=== PATIENT | male | born 1970 | race Caucasian/White ===

== ENCOUNTER 2016-08-30 06:16 | Day surgery (SDC) | payer OTHER ==
--- NOTE | ~2016-08-30 | EGD ---
EGD REPORT [facility] [address] [place]. [address] NAME: JARRET MTZ : 74 STATUS : REG [facility]#: [id number] AGE: 46 ADM/REG DATE : 08/30/16 MR#: [id number] REPORT SERV DATE: 08/30/16 DICTATED BY: POLI AMOS DATE: 08/30/16 REPORT STATUS : Draft TRANSCRIBED BY: [employer] DATE: 08/30/16 Endoscopy Center Patient Name: Jarret Mtz Date of : 1970 Attending MD: POLI AMOS MD Procedure Date No Time: 08/30/2016 Procedure: Colonoscopy Indications: FH of Colon Cancer -distant relative, Personal history of ulcerative colitis Medicines: as per anesthesia Complications: No immediate complications. Procedure: Pre-Anesthesia Assessment: - ASA Grade Assessment: III - A patient with severe systemic disease. After I obtained informed consent, the scope was passed under direct vision. Throughout the procedure, the patient's blood pressure, pulse, and oxygen saturations were monitored continuously. The PCF [id number] was introduced through the anus and advanced to the cecum, identified by appendiceal orifice and ileocecal valve. The colonoscopy was performed without difficulty. The patient tolerated the procedure. The quality of the bowel preparation was adequate to identify polyps. Findings: The perianal and digital rectal examinations were normal. no active colitis Four biopsies were obtained in the rectum, in the sigmoid colon, in the descending colon, in the proximal transverse colon, in the distal transverse colon, in the ascending colon and in the cecum with cold forceps for histology. Impression: - Four biopsies were obtained in the rectum, in the sigmoid colon, in the descending colon, in the proximal transverse colon, in the distal transverse colon, in the ascending colon and in the cecum. Recommendation: - Await pathology results. - Repeat colonoscopy for surveillance based on pathology results. Procedure Code(s): --- Professional --- 17277, Colonoscopy, flexible, proximal to splenic flexure; with biopsy, single or multiple EGD REPORT [address] [place]. [address] NAME: JARRET MTZ : 74 STATUS : REG [facility]#: [id number] AGE: 46 ADM/REG DATE : 08/30/16 MR#: [id number] REPORT SERV DATE: 08/30/16 DICTATED BY: POLI AMOS DATE: 08/30/16 REPORT STATUS : Draft TRANSCRIBED BY: [employer] DATE: 08/30/16 Diagnosis Code(s): --- Professional --- Z80.0, Family history of malignant neoplasm of digestive organs Z87.19, Personal history of other diseases of the digestive system CPT copyright 2013 [employer]. All rights reserved. The codes documented in this report are preliminary and upon chimney builder helper review may be revised to meet current compliance requirements. POLI AMOS MD 08/30/2016 8:03 AM This report has been signed electronically. Number of Addenda: 0 Note Initiated On: 08/30/2016 7:20 AM Scope Withdrawal Time 0 hours 13 minutes [address] [place], [place] [address] [address]
[~2016-08-30 06:16] MED LIST: ASACOL HD800 MG PO; HYDROCHLOROT25 MG PO; LOTE40 PO; PRILOSEC40 MG PO; URSO250 PO
[2016-08-30] MEDS ORDERED: LOTE40 PO (20:22)
[2016-08-30] MEDS ORDERED: HYDROCHLOROT25 MG PO (20:22)
[2016-08-30] MEDS ORDERED: ASACOL HD800 MG PO (20:23)
[2016-08-30] MEDS ORDERED: PRILOSEC OTC20 MG PO (20:24)
[2016-08-30] MEDS ORDERED: ACT300 PO ×2 (20:24)
[2016-08-30] MEDS ORDERED: MULTIVIT/MIN PO (20:24)
[2016-08-30] MEDS ORDERED: FISH-EPA1000 MG PO (20:25)
== END 2016-08-30 23:50 | disposition home or self-care (01) ==
LOC: DMU 06:16
PROVIDERS: Internal Medicine Gastroenterology
PROC: 0DBH8ZX Excision of Cecum, Via Natural or Artificial Opening Endoscopic, Diagnostic (ICD-10-PCS; 2016-08-30)
PROC: 0DBK8ZX Excision of Ascending Colon, Via Natural or Artificial Opening Endoscopic, Diagnostic (ICD-10-PCS; 2016-08-30)
PROC: 0DBL8ZX Excision of Transverse Colon, Via Natural or Artificial Opening Endoscopic, Diagnostic (ICD-10-PCS; 2016-08-30)
PROC: 0DBM8ZX Excision of Descending Colon, Via Natural or Artificial Opening Endoscopic, Diagnostic (ICD-10-PCS; 2016-08-30)
PROC: 0DBN8ZX Excision of Sigmoid Colon, Via Natural or Artificial Opening Endoscopic, Diagnostic (ICD-10-PCS; 2016-08-30)
PROC: 0DBP8ZX Excision of Rectum, Via Natural or Artificial Opening Endoscopic, Diagnostic (ICD-10-PCS; principal; 2016-08-30 07:30)
DX: K52.9 Noninfective gastroenteritis and colitis, unspecified (principal); I10 Essential (primary) hypertension; K83.0 Cholangitis; K21.9 Gastro-esophageal reflux disease without esophagitis; M50.20 Other cervical disc displacement, unspecified cervical region; H91.92 Unspecified hearing loss, left ear; Z80.0 Family history of malignant neoplasm of digestive organs; Z88.2 Allergy status to sulfonamides; Z88.5 Allergy status to narcotic agent; Z88.8 Allergy status to other drugs, medicaments and biological substances; Z79.899 Other long term (current) drug therapy
CPT/HCPCS: 45380; 88305; J2543

== ENCOUNTER 2016-08-30 14:25 | Inpatient (IN) | payer OTHER ==
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
--- NOTE | ~2016-08-30 | DS ---
Discharge Summary [facility] [address] [place]. [address] NAME: MARC MILES : 74 STATUS : ADM IN [facility]#: [id number] AGE: 46 ADM/REG DATE : 08/30/16 MR#: [id number] REPORT SERV DATE: 09/02/16 DICTATED BY: VI DU DATE: 09/02/16 REPORT STATUS : Draft TRANSCRIBED BY: MODL DATE: 09/02/16 ADMISSION DATE: 08/30/2016 DISCHARGE DATE: 09/02/2016 FINAL HOSPITAL DIAGNOSES: 1. Febrile illness, felt secondary to probable mild aspiration during colonoscopy. 2. Ulcerative colitis. 3. Primary sclerosing cholangitis. CONSULTATIONS: Dr. Sellers. PROCEDURES: CT of the abdomen and pelvis done on 08/30/2016 showing no acute abdominal or pelvic pathology. No imaging explanation for the reported abdominal pain and fever. Normal small caliber air-filled appendix right lower quadrant. No pneumoperitoneum or ascites to suggest perforation. CURRENT PHYSICAL FINDINGS AND HISTORY OF PRESENT ILLNESS: Please see the dictated H and P by Dr. Martino. In brief, the patient is a 46-year-old otherwise healthy male with the above medical history, presented after fevers and chills developing after colonoscopy. Vital signs at the time of admission, BP was 133/73, temperature was 99.7. Lab work showed a procalcitonin of 0.11 on admission and 0.09 on recheck, no significant abnormalities on . TSH was 0.292 with a T4 of 1.04 CRP was 19.1. A1c was 5.5. Initial white count was 13.9, subsequent were 11.0 on 08/31/2016, and 8.0 on 09/02/2016. HLA-B27 was ordered and currently pending. Urinalysis was unremarkable. Blood cultures are negative to date. Initial chest x-ray showed no acute abnormality. Followup chest x-ray on 08/31/2016 showed mild subsegmental left basilar atelectasis. The patient was admitted. Reasonable pain medications were given. GI was consulted for further insight on his endoscopy. He was started on Zosyn. Electrolyte protocol and home medications. No significant fever or respiratory distress the following day. On further discussion with GI, the patient had a small aspiration of oral contents felt contributing to his symptoms. He continued to do well without complaints or problems. On 09/02/2016, he was re-evaluated. He had no significant symptoms, was felt stable for discharge. DISPOSITION: Discharged home. MEDICATIONS: Lotensin 40; hydrochlorothiazide 25; Asacol 2400 twice a day; multivitamin; fish oil 1000 b.i.d.; Prilosec OTC, 900 at a.m., 600 p.m. He was given a work excuse as well as a prescription for Augmentin 875 b.i.d. x5 days to complete a seven day course of treatment. He states he has had amoxicillin before and believes he has tolerated the Augmentin before without difficulty. He will be referred to Rheumatology in the outpatient per Dr. Sellers for his arthralgias. He is encouraged to follow up with his PCP if his symptoms worsen or fail to resolve on the oral antibiotics. TLF/MODL Discharge Summary [address] [address] NAME: MARC MILES : 74 STATUS : ADM IN [facility]#: [id number] AGE: 46 ADM/REG DATE : 08/30/16 MR#: [id number] REPORT SERV DATE: 09/02/16 DICTATED BY: VI DU DATE: 09/02/16 REPORT STATUS : Draft TRANSCRIBED BY: BRIGITTE DATE: 09/02/16 Vi Du M.D. / [id number] CC: Vi Du M.D.
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
[2016-08-30 15:04] LABS: BASOPHILS 0.1 %; BASOPHILS ABSOLUTE 0.01 10/3/uL (0.0-0.16); EOSINOPHILS 0.2 %; EOSINOPHILS ABSOLUTE 0.03 10/3/uL (0.0-0.53); HEMATOCRIT 43.6 % (40.0-51.0); HEMOGLOBIN 15.2 g/dL (13.6-17.8); IMMATURE GRANULOCYTES 0.2 %; IMMATURE GRANULOCYTES ABSOLUTE 0.03 10/3/uL (0.0-0.11); LYMPHOCYTES 6.7 %; LYMPHOCYTES ABSOLUTE 0.93 10/3/uL (0.67-4.30); MEAN CORPUS HGB CONC 34.9 g/dL (32.0-36.0); MEAN CORPUSCULAR HEMOGLOB 31.9 pg (26.0-34.0); MEAN CORPUSCULAR VOLUME 91.4 fL (80-100); MEAN PLATELET VOLUME 13.1 fL (9.2-13.0); MONOCYTES 4.7 %; MONOCYTES ABSOLUTE 0.65 10/3/uL (0.21-1.20); NEUTROPHILS 88.1 %; PLATELET COUNT 130 10/3/uL (150-400); RBC DISTRIBUTION WIDTH 13.2 % (12.0-16.0); RED CELL COUNT 4.77 10/6/uL (4.7-6.1)
[2016-08-30 15:05] LABS: ER CBC TAT 0 Hrs 09 Mins; MANUAL DIFF NO %; WHITE BLOOD CELLS 13.9 10/3/uL (4.5-10.5)
[2016-08-30 15:08] LABS: ASCORBIC ACID (UR NOT ORDER) NEG (NEG); BILIRUBIN, URINE NEGATIVE (NEG); ER URINALYSIS TAT 0 Hrs 12 Mins; KETONE, URINE NEGATIVE (NEG); LEUKOCYTE ESTERASE(NOT OR NEG (NEG); NITRITE (URINE) NEG (NEG); WBC (NOT ORDERED) (RFLEX) < 1 (0-5)
[2016-08-30 15:19] LABS: A/G RATIO 0.9 (0.7-1.9); ALBUMIN 3.9 G/DL (3.5-5.0); ALKALINE PHOSPHATASE 121 U/L (45-117); BUN (BLOOD UREA NITROGEN) 11 MG/DL (6-23); CALCIUM, SERUM 9.1 MG/DL (8.5-10.4); CHLORIDE, SERUM 104 MMOL/L (96-112); CO2 (CARBON DIOXIDE) 31 MMOL/L (24-34); CREATININE 1.12 MG/DL (0.70-1.30); GFR AFRICAN AMERICAN 92 ML/MIN (>=60); GFR NON AFRICAN AMERICAN 79 ML/MIN (>=60); GLOBULIN 4.3 G/DL (2.5-4.1); GLUCOSE, SERUM 150 MG/DL (60-99); POTASSIUM, SERUM 4.1 MMOL/L (3.5-5.3); SGOT(AST) 27 U/L (5-40); SGPT(ALT) 42 U/L (5-65); SODIUM, SERUM 138 MMOL/L (135-148); TOTAL BILIRUBIN 0.5 MG/DL (0-1.2); TOTAL PROTEIN 8.2 G/DL (6.0-8.5)
[2016-08-30] MEDS ORDERED: LOTE40 PO (20:22)
[2016-08-30] MEDS ORDERED: HYDROCHLOROT25 MG PO (20:22)
[2016-08-30] MEDS ORDERED: ASACOL HD800 MG PO (20:23)
[2016-08-30] MEDS ORDERED: ACT300 PO ×2 (20:24)
[2016-08-30] MEDS ORDERED: PRILOSEC OTC20 MG PO (20:24)
[2016-08-30] MEDS ORDERED: MULTIVIT/MIN PO (20:24)
[2016-08-30] MEDS ORDERED: FISH-EPA1000 MG PO (20:25)
[2016-08-31 05:32] LABS: CALCIUM IONIZED 4.5 MG/DL (3.80-4.80)
[2016-08-31 05:40] LABS: INTERNATIONAL NORMAL RATI 1.1 UNITS (-); PARTIAL THROMBO TIME 26.7 SEC (22.5-37.2)
[2016-08-31 05:41] LABS: BASOPHILS 0.1 %; BASOPHILS ABSOLUTE 0.01 10/3/uL (0.0-0.16); EOSINOPHILS 1.2 %; EOSINOPHILS ABSOLUTE 0.13 10/3/uL (0.0-0.53); HEMATOCRIT 39.4 % (40.0-51.0); HEMOGLOBIN 13.4 g/dL (13.6-17.8); IMMATURE GRANULOCYTES 0.2 %; IMMATURE GRANULOCYTES ABSOLUTE 0.02 10/3/uL (0.0-0.11); LYMPHOCYTES 21.8 %; MANUAL DIFF NO %; MEAN CORPUSCULAR HEMOGLOB 31.2 pg (26.0-34.0); MEAN CORPUSCULAR VOLUME 91.6 fL (80-100); MONOCYTES 7.3 %; NEUTROPHILS 69.4 %; NEUTROPHILS ABSOLUTE 7.66 10/3/uL (2.02-8.40); PLATELET COUNT 113 10/3/uL (150-400); RBC DISTRIBUTION WIDTH 13.4 % (12.0-16.0)
[2016-08-31 06:00] LABS: A/G RATIO 0.9 (0.7-1.9); ALBUMIN 3.2 G/DL (3.5-5.0); BUN (BLOOD UREA NITROGEN) 11 MG/DL (6-23); C-REACTIVE PROTEIN 19.1 MG/L (<8.0); CALCIUM, SERUM 8.3 MG/DL (8.5-10.4); CHLORIDE, SERUM 108 MMOL/L (96-112); CO2 (CARBON DIOXIDE) 27 MMOL/L (24-34); CREATININE 0.94 MG/DL (0.70-1.30); FREE T4 1.04 NG/DL (0.76-1.46); GFR AFRICAN AMERICAN 114 ML/MIN (>=60); GFR NON AFRICAN AMERICAN 98 ML/MIN (>=60); GLOBULIN 3.6 G/DL (2.5-4.1); POTASSIUM, SERUM 3.5 MMOL/L (3.5-5.3); SGOT(AST) 17 U/L (5-40); SGPT(ALT) 32 U/L (5-65); SODIUM, SERUM 142 MMOL/L (135-148); TOTAL BILIRUBIN 0.7 MG/DL (0-1.2); TOTAL PROTEIN 6.8 G/DL (6.0-8.5)
[2016-08-31 06:01] LABS: ALKALINE PHOSPHATASE 105 U/L (45-117); GLUCOSE, SERUM 95 MG/DL (60-99); ULTRASENSITIVE TSH 0.292 MCIU/ML (0.358-3.740)
[2016-08-31 06:14] LABS: PROCALCITONIN 0.11 ng/mL (<0.5)
[2016-08-31 09:54] LABS: GLYCOHEMOGLOBIN (HbA1c) 5.5 % (4.7-6.1)
[2016-09-02 07:20] LABS: BASOPHILS 0.4 %; BASOPHILS ABSOLUTE 0.03 10/3/uL (0.0-0.16); EOSINOPHILS 2.4 %; EOSINOPHILS ABSOLUTE 0.19 10/3/uL (0.0-0.53); HEMATOCRIT 38.3 % (40.0-51.0); HEMOGLOBIN 13.3 g/dL (13.6-17.8); IMMATURE GRANULOCYTES 0.2 %; IMMATURE GRANULOCYTES ABSOLUTE 0.02 10/3/uL (0.0-0.11); LYMPHOCYTES 23.8 %; LYMPHOCYTES ABSOLUTE 1.91 10/3/uL (0.67-4.30); MANUAL DIFF NO %; MEAN CORPUS HGB CONC 34.7 g/dL (32.0-36.0); MEAN CORPUSCULAR HEMOGLOB 31.3 pg (26.0-34.0); MEAN CORPUSCULAR VOLUME 90.1 fL (80-100); MEAN PLATELET VOLUME 13.1 fL (9.2-13.0); MONOCYTES 6.4 %; MONOCYTES ABSOLUTE 0.51 10/3/uL (0.21-1.20); NEUTROPHILS 66.8 %; NEUTROPHILS ABSOLUTE 5.36 10/3/uL (2.02-8.40); PLATELET COUNT 108 10/3/uL (150-400); RBC DISTRIBUTION WIDTH 13.3 % (12.0-16.0); RED CELL COUNT 4.25 10/6/uL (4.7-6.1)
[2016-09-02] MEDS ORDERED: AUG875 PO (12:09)
== END 2016-09-02 12:33 | disposition home or self-care (01) | DRG 206 ==
LOC: ER 14:25 → 4SO 20:31
PROVIDERS: Hospitalist; Internal Medicine
PROC: 0DBK8ZX Excision of Ascending Colon, Via Natural or Artificial Opening Endoscopic, Diagnostic (ICD-10-PCS; principal; 2016-08-30)
PROC: 0DBL8ZX Excision of Transverse Colon, Via Natural or Artificial Opening Endoscopic, Diagnostic (ICD-10-PCS; principal; 2016-08-30)
PROC: 0DBM8ZX Excision of Descending Colon, Via Natural or Artificial Opening Endoscopic, Diagnostic (ICD-10-PCS; principal; 2016-08-30)
PROC: 0DBH8ZX Excision of Cecum, Via Natural or Artificial Opening Endoscopic, Diagnostic (ICD-10-PCS; principal; 2016-08-30)
PROC: 0DBN8ZX Excision of Sigmoid Colon, Via Natural or Artificial Opening Endoscopic, Diagnostic (ICD-10-PCS; principal; 2016-08-30)
PROC: 0DBP8ZX Excision of Rectum, Via Natural or Artificial Opening Endoscopic, Diagnostic (ICD-10-PCS; principal; 2016-08-30)
DX: J95.89 Other postprocedural complications and disorders of respiratory system, not elsewhere classified (principal); T17.890A Other foreign object in other parts of respiratory tract causing asphyxiation, initial encounter; K83.0 Cholangitis; K51.80 Other ulcerative colitis without complications; K51.90 Ulcerative colitis, unspecified, without complications; R65.10 Systemic inflammatory response syndrome (SIRS) of non-infectious origin without acute organ dysfunction; M50.20 Other cervical disc displacement, unspecified cervical region; J98.11 Atelectasis; Y84.8 Other medical procedures as the cause of abnormal reaction of the patient, or of later complication, without mention of misadventure at the time of the procedure; Y92.89 Other specified places as the place of occurrence of the external cause; I10 Essential (primary) hypertension; M13.0 Polyarthritis, unspecified; Z79.899 Other long term (current) drug therapy; F41.9 Anxiety disorder, unspecified; Z88.2 Allergy status to sulfonamides; Z88.8 Allergy status to other drugs, medicaments and biological substances; Z88.5 Allergy status to narcotic agent; Z72.0 Tobacco use; M07.6 Enteropathic arthropathies; M07.65 Enteropathic arthropathies, hip; M07.652 Enteropathic arthropathies, left hip; M07.662 Enteropathic arthropathies, left knee; K52.9 Noninfective gastroenteritis and colitis, unspecified; K21.9 Gastro-esophageal reflux disease without esophagitis; H91.92 Unspecified hearing loss, left ear; Z80.0 Family history of malignant neoplasm of digestive organs
CPT/HCPCS: 71010; 71020; 74176; 80053; 81001; 82330; 82962; 83036; 83735; 84145; 84439; 84443; 84481; 85025; 85610; 85730; 86140; 86812; 87040; 88305; 99285; A9270-GY; J2543